=== PATIENT | male | born 1970 | race Caucasian/White ===

== ENCOUNTER 2017-04-19 02:17 | Outpatient (CLI) | payer OTHER, MEDICAID | END 2017-04-19 02:18 | disposition critical access hospital (66) | LOC: EMS 02:17 | PROVIDERS: ATTEND Surgery | DX: S09.8XXA Other specified injuries of head, initial encounter (principal); Y04.8XXA Assault by other bodily force, initial encounter; Y92.9 Unspecified place or not applicable | CPT/HCPCS: A0425; A0429 ==

== ENCOUNTER 2017-04-19 02:47 | Emergency (ER) | payer MEDICAID, OTHER ==
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
[2017-04-19] MEDS ORDERED: ACETAMINOPHEN 325 MG TABLET PO STA (03:15)
[2017-04-19] MEDS ORDERED: IBUPROFEN 600 MG TABLET PO STA (03:15)
[2017-04-19] MEDS ORDERED: ACETAMINOPHEN 325 MG TABLET PO ONE (03:26)
[2017-04-19] MEDS ORDERED: IBUPROFEN 600 MG TABLET PO ONE (03:27)
--- NOTE | 2017-04-19 04:25 | CT Preliminary Report ---
Exam: CT HEAD W/O IMPRESSION: Normal head CT. [facility] SITE ID: [id number]
--- NOTE | 2017-04-19 04:27 | CT Preliminary Report ---
Exam: CT ORBITS W/O IMPRESSION: Bilateral nasal bone fractures. [facility] SITE ID: [id number]
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
--- NOTE | 2017-04-19 04:35 | CT Preliminary Report ---
Exam: CT CERVICAL SPINE W/O IMPRESSION: No evidence of cervical spine fracture. [facility] SITE ID: [id number]
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
[2017-04-19] MEDS ORDERED: HYDROcod/ACET 5/325 Prepack 6 PO ONE ×2 (04:48→05:05)
[2017-04-19] MEDS ORDERED: HYDROcod/ACETAM 5/325 MG TABLET PO STA (04:48)
[2017-04-19] MEDS ORDERED: HYDROcod/ACETAM 5/325 MG TABLET ONE (05:05)
[2017-04-19 05:11] VITALS: BP 107/71
== END 2017-04-19 05:05 | disposition home or self-care (01) ==
LOC: EDUNIT# → ED 02:47
DX: S02.2XXA Fracture of nasal bones, initial encounter for closed fracture (principal); S00.12XA Contusion of left eyelid and periocular area, initial encounter; Y04.2XXA Assault by strike against or bumped into by another person, initial encounter; F17.200 Nicotine dependence, unspecified, uncomplicated
CPT/HCPCS: 70450; 70480; 72125; 99283; 99284; A9270